=== PATIENT | male | born 1985 | race Caucasian/White ===

== ENCOUNTER 2019-03-02 06:34 | Emergency (ER) | payer OTHER ==
[2019-03-02 07:15] LABS: ABSOLUTE EOSINOPHILS # (AUTO) 0.1 10^3/uL (0.0-0.6); ABSOLUTE LYMPHOCYTES (AUTO) 2.9 10^3/uL (0.5-4.7); ABSOLUTE MONOCYTES (AUTO) 0.5 10^3/uL (0.1-1.4); ABSOLUTE NEUT (AUTO) 3.8 10^3/uL (1.7-8.2); BASOPHILS % (AUTO) 0.5 % (0-2); EOSINOPHILS % (AUTO) 1.8 % (0-6); HEMATOCRIT 39.8 % (37.9-51.0); HEMOGLOBIN 13.7 g/dL (13.5-17.0); LYMPHOCYTES % (AUTO) 39.3 % (13-45); MEAN CORPUSCULAR HEMOGLOBIN 29.1 pg (27.0-33.4); MEAN CORPUSCULAR HGB CONC 34.5 g/dL (32.0-36.0); MEAN CORPUSCULAR VOLUME 84 fl (80-97); MONOCYTES % (AUTO) 7.3 % (3-13); PLATELET COUNT 280 10^3/uL (150-450); RED BLOOD COUNT 4.72 10^6/uL (4.35-5.55); RED CELL DISTRIBUTION WIDTH 13.5 % (11.5-14.0); SEGMENTED NEUTROPHILS % (AUTO) 51.1 % (42-78); TOTAL CELLS COUNTED % (AUTO) 100 %; WHITE BLOOD COUNT 7.5 10^3/uL (4.0-10.5)
[2019-03-02] MEDS ORDERED: KETOROLAC TROMETHAMINE INJ/PF 30 MG/1 ML SDV IV ONE (07:22)
[2019-03-02] MEDS ORDERED: ONDANSETRON HCL INJ/PF 4 MG/2 ML SDV IV ONE (07:22)
[2019-03-02 07:33] LABS: ALBUMIN 4.6 g/dL (3.5-5.0); ALKALINE PHOSPHATASE 85 U/L (38-126); ANION GAP 12 (5-19); ASPARTATE AMINO TRANSFERASE 32 U/L (17-59); BILIRUBIN,DIRECT 0.1 mg/dL (0.0-0.4); BILIRUBIN,TOTAL 0.4 mg/dL (0.2-1.3); BLOOD UREA NITROGEN 23 mg/dL (7-20); CALCIUM 9.5 mg/dL (8.4-10.2); CARBON DIOXIDE 22 mmol/L (22-30); CHLORIDE 108 mmol/L (98-107); GLUCOSE 96 mg/dL (75-110); POTASSIUM 3.8 mmol/L (3.6-5.0); TOTAL PROTEIN 8.1 g/dL (6.3-8.2)
[2019-03-02 07:59] LABS: APPEARANCE,URINE SLIGHTLY-CLOUDY; BILIRUBIN,URINE NEGATIVE (NEGATIVE); COLOR,URINE YELLOW; GLUCOSE, URINE NEGATIVE (NEGATIVE); KETONES,URINE NEGATIVE (NEGATIVE); LEUKOCYTE ESTERASE,URINE NEGATIVE (NEGATIVE); NITRITE,URINE NEGATIVE (NEGATIVE); PROTEIN,URINE 30 mg/dL (NEGATIVE); URINE SPECIFIC GRAVITY 1.021; UROBILINOGEN,URINE NEGATIVE mg/dL (<2.0)
[2019-03-02] MEDS ORDERED: MORPHINE SULFATE 10 MG/ML INJ IV ONE ×2 (08:14→10:19)
--- NOTE | 2019-03-02 08:42 | ER Document Report ---
ED GI/ - General Chief Complaint: Abdominal Pain Stated Complaint: LEFT SIDE FLANK PAIN Time Seen by Provider: 03/02/19 07:59 Primary Care Provider: ELLYN,MOLLY [Primary Care Provider] - Follow up tomorrow (Follow up with URGENT UROLOGY REFERRAL) Notes: 33-year-old male with history of IBS presents with left lower quadrant pain that started last night with nausea. Patient states that pain is intermittent. Patient states that this pain radiates down to his left hip and to his left lower back. Patient states nothing makes it worse and nothing makes it better. Patient states he thought that it was his IBS and attempted to make himself vomit in an attempt to make himself feel better but that did not help. Patient states he took a couple tramadol this morning and it did not help with the pain. Patient states he does have a history of kidney stones however this feels different. Patient denies any urinary symptoms, fever, chills, constipation. Patient states he always has diarrhea and it is unchanged since last night. Patient denies any blood in emesis or in stool. TRAVEL OUTSIDE OF THE [place] IN LAST 30 DAYS: No - Related Data Allergies/Adverse Reactions: No Known Allergies Allergy (Verified 12/19/13 18:53) Home Medications: too many, pt can't state Past Medical History - Social History Smoking Status: Current Every Day Smoker Chew tobacco use (# tins/day): Yes Frequency of alcohol use: none for 1 yr Drug Abuse: None Family History: Reviewed & Not Pertinent Patient has suicidal ideation: No Patient has homicidal ideation: No Neurological Medical History: Reports: Hx Migraine Skin Medical History: Denies Hx Eczema, Denies Hx MRSA Psychiatric Medical History: Reports: Hx Depression Past Surgical History: Reports: Hx Inguinal Hernia - Immunizations Hx Diphtheria, Pertussis, Tetanus Vaccination: Yes Review of Systems - Review of Systems Notes: Constitutional: Negative for fever. HENT: Negative for sore throat. Eyes: Negative for visual changes. Cardiovascular: Negative for chest pain. Respiratory: Negative for shortness of breath. Gastrointestinal: Positive for abdominal pain, vomiting and diarrhea. Genitourinary: Negative for dysuria. Musculoskeletal: Negative for back pain. Skin: Negative for rash. Neurological: Negative for headaches, weakness or numbness. 10 point ROS negative except as marked above and in HPI. Physical Exam - Vital signs Vitals: Temp Pulse Resp BP Pulse Ox 98.0 F 64 20 118/70 97 03/02/19 06:46 03/02/19 06:46 03/02/19 06:46 03/02/19 06:46 03/02/19 06:46 - Notes Notes: GENERAL: Well-appearing, well-nourished and appears uncomfortable.. HEAD: Atraumatic, normocephalic. EYES: Extraocular movements intact, sclera anicteric, conjunctiva are normal. NECK: Normal range of motion, supple without lymphadenopathy or JVD. LUNGS: Breath sounds clear to auscultation bilaterally and equal. No wheezes rales or rhonchi. HEART: Regular rate and rhythm without murmurs, rubs or gallops. ABDOMEN: Soft, tender to left lower quadrant. No guarding, no rebound. No masses appreciated. No CVA tenderness. EXTREMITIES: Normal range of motion, no pitting or edema. No clubbing or cyanosis. NEUROLOGICAL: Cranial nerves II through XII grossly intact. Normal speech, normal gait. PSYCH: Normal mood, normal affect. SKIN: Warm, Dry, normal turgor, no rashes or lesions noted. Course - Re-evaluation Re-evalutation: 03/02/19 33-year-old male with past medical history of IBS presents with left lower quadrant pain that radiates to left lower back and left hip. Abdomen is soft with tenderness to left lower quadrant without CVA tenderness. UA shows hematuria without infection. Patient also has a history of kidney stones. Patient was given Toradol and Zofran prior to being seen by this provider. Patient states Toradol did not help with pain. However Zofran did help with his nausea. Work-up initiated including CT abdomen/pelvis with IV contrast. Morphine ordered. 03/02/19 09:07 Mild SHAYNE, creatinine 1.32 and BUN 23. NS 1 L IV bolus ordered. No leukocytosis. Liver enzymes WNL. Alk phos WNL. No anemia. Lipase WNL. 03/02/19 10:[address] Lo, attending, who recommended calling urology for stat follow up, getting pain under control, and making sure pt is PO tolerant. Discussed results with pt and pt's . Pt is [facility] pt and will call [facility] to see about urology referral/followup and if possible this provider will c [facility] urology for outpatient follow up. Pt states pain is starting to return. Another dose of morphine ordered with PO challenge. 03/02/19 10:55 This provider attempted to contact [facility] for referral to urology. Spoke to Belkis at office [facility] at [phone]. Belkis states that [facility] and then upon discharge contact his PCP. Pt is currently attempting to contact his PCP. Will also given pt provider note to help facilitate referral process. Pt is PO tolerant at this time and pain is controlled. 03/02/19 11:05 Pt states will contact his PCP for urgent referral to urology. Pt given provider note and CT results to take with him. Strict return precautions given/discussed. All questions/concerns addressed prior to discharge. Pt and pt's voice understanding and agree with plan of care. - Vital Signs Vital signs: Temp Pulse Resp BP Pulse Ox 98.0 F 64 20 118/72 96 03/02/19 06:46 03/02/19 06:46 03/02/19 06:46 03/02/19 09:00 03/02/19 11:00 - Laboratory Result Diagrams: 03/02/19 06:55 03/02/19 06:55 Laboratory results interpreted by me: 03/02/19 03/02/19 06:55 07:20 Chloride 108 H BUN 23 H Creatinine 1.32 H Urine Protein 30 H Urine Blood LARGE H Discharge - Discharge Clinical Impression: Left ureteral stone Condition: Stable Disposition: HOME, SELF-CARE Additional Instructions: Your CT shows a 9 mm stone in the left middle 3rd ureter with moderate left hydronephrosis and upper hydroureter. You will not be able to pass this stone and will need to see a urologist URGENTLY. Please take medication as prescribed. Return to ER IMMEDIATELY if you have any of the following symptoms: fever, inability to urinate, increased blood in urine. Please return to ER for any worsening symptoms that may be concerning to you. Prescriptions: Tamsulosin HCl [Flomax 0.4 mg Cap.sr] 0.4 mg PO DAILY #7 cap.sr.24h Oxycodone HCl/Acetaminophen [Percocet 5-325 mg Tablet] 1 - 2 tab PO Q4H PRN #15 tablet PRN Reason: Ondansetron [Zofran Odt 4 mg Tablet] 1 - 2 tab PO Q4H PRN #15 tab.rapdis PRN Reason: For Nausea/Vomiting [facility]errals: [facility] [[facility] Care [facility]] - Follow up tomorrow (Follow up with URGENT UROLOGY REFERRAL)
[2019-03-02] MEDS ORDERED: NORMAL SALINE 1000 ML 1,000 ML IV ONE (09:06)
--- NOTE | 2019-03-02 09:51 | RADIOLOGY REPORT (SQ) ---
EXAM DESCRIPTION: CT ABD/PELVIS WITH IV ONLY COMPLETED DATE/TIME: 03/02/2019 9:28 am REASON FOR STUDY: LLQ pain, nausea/vomiting, hx ibs and kidney stone COMPARISON: CT abdomen pelvis 09/05/2015, 12/19/2013 TECHNIQUE: CT scan of the abdomen and pelvis performed using helical scanning technique with dynamic intravenous contrast injection. No oral contrast. Images reviewed with lung, soft tissue, and bone windows. Reconstructed coronal and sagittal MPR images reviewed. Delayed images for evaluation of the urinary system also acquired. All images stored on PACS. All CT scanners at this facility use dose modulation, iterative reconstruction, and/or weight based d osing when appropriate to reduce radiation dose to as low as reasonably achievable (ALARA). [facility]: Dose Right [facility]: CareDose [facility]: Dose Right [facility]: Teradose 4D [facility]: [employer] CONTRAST TYPE AND DOSE: contrast/concentration: Isovue 350.00 mg/ml; Total Contrast Delivered: 100.0 ml; Total Saline Delivered: 72.0 ml RENAL FUNCTION: Creatinine 1.3 RADIATION DOSE: CT Rad equipment meets quality standard of care and radiation dose reduction techniq ues were employed. CTDIvol: 11.8 - 16.2 mGy. DLP: 2677 mGy-cm.. LIMITATIONS: None. FINDINGS: Moderate left hydronephrosis is present, due to a 9 mm stone in the left mid 3rd ureter at the level of the L3-4 disc. Stone measures 890 Hounsfield units. Mild left periureteral stranding in the retroperitoneal fat at the level of the stone No left renal cysts or masses. No other left ureteral calculi. LOWER CHEST: No significant findings. No nodules or infiltrates. LIVER: Normal size. No masses. No dilated ducts. SPLEEN: Normal size. No focal lesions. PANCREAS: No masses. No significant calcifications. No adjacent inflammation or peripancreatic fluid collections. Pancreatic duct not dilated. GALLBLADDER: No identified stones by CT criteria. No inflammatory changes to suggest cholecystitis. ADRENAL GLANDS: No significant masses or asymmetry. RIGHT KIDNEY AND URETER: No solid masses. 2 mm stone right lower pole kidney. No hydronephrosis o r hydroureter. LEFT KIDNEY AND URETER: As above. AORTA AND VESSELS: No aneurysm. No dissection. Renal arteries, SMA, celiac without stenosis. RETROPERITONEUM: No retroperitoneal adenopathy, hemorrhage or masses. BOWEL AND PERITONEAL CAVITY: No masses or inflammatory changes. No free fluid or peritoneal masses. APPENDIX: Normal. PELVIS: No mass. No free fluid. Normal bladder. ABDOMINAL WALL: No masses. No hernias. BONES: No significant or acute findings. OTHER: No other significant finding. IMPRESSION: 9 mm left mid third ureteral calculus causing moderate left hydronephrosis and upper hyd roureter. TECHNICAL DOCUMENTATION: JOB ID: [id number] Quality ID # [id number]: Final reports with documentation of one or more dose reduction techniques (e.g., Au tomated exposure control, adjustment of the mA and/or kV according to patient size, use of iterative reconstruction technique) 2010 [employer]- All Rights Reserved Reading location - IP/workstation name: [email or web address]
[2019-03-02] MEDS ORDERED: ONDANSETRON ODT 4 MG TAB (6 TAB/ER DISP) PO PRN (10:59)
[2019-03-02] MEDS ORDERED: HYDROCODONE/ACETAMINOPHEN 5-325 MG (6 TAB/ER DISP) PO PRN (10:59)
[2019-03-02 11:37] VITALS: BP 121/70
== END 2019-03-02 11:17 | disposition home or self-care (01) ==
LOC: ER 06:34
DX: N13.2 Hydronephrosis with renal and ureteral calculous obstruction (principal); R31.9 Hematuria, unspecified; R10.32 Left lower quadrant pain; R10.814 Left lower quadrant abdominal tenderness; R11.2 Nausea with vomiting, unspecified; R19.7 Diarrhea, unspecified; F17.200 Nicotine dependence, unspecified, uncomplicated
CPT/HCPCS: 96376; 99284; 96361; 96374; 96375; 36415; 83690; 85025; 80053; 81001; 74177; J1885; J2270; J2405; J7030

== ENCOUNTER 2019-08-27 21:39 | Emergency (ER) | payer OTHER ==
[2019-08-27] MEDS ORDERED: NORMAL SALINE 1000 ML 1,000 ML IV ONE ×2 (21:56→23:13)
[2019-08-27] MEDS ORDERED: ONDANSETRON HCL INJ/PF 4 MG/2 ML SDV IV ONE (21:57)
[2019-08-27] MEDS ORDERED: KETOROLAC TROMETHAMINE INJ/PF 30 MG/1 ML SDV IV ONE (21:57)
--- NOTE | 2019-08-27 22:00 | ER Document Report ---
ED Medical Screen (RME) - General Chief Complaint: Urinary Problem Stated Complaint: URINARY PROBLEM, URINATING BLOOD Time Seen by Provider: 08/27/19 21:56 Primary Care Provider: MOLLY RAGLAND [Primary Care Provider] - Follow up as needed Mode of Arrival: Ambulatory Information source: Patient Notes: 33-year-old male presented to ED for complaint of severe left going around to the groin pain. He states that he had a kidney stone on the left last week a stent was placed on . He states the blood and pain is getting much worse in his left flank going around to the groin. He states he tried to call the provider who placed the stent and was not able to get in touch with him. He states he called the [facility] the on-call nurse and they told him to come to the emergency room. Patient is alert oriented respirations regular nonlabored speaking in full sentences. I have ordered him IV fluids blood urine Toradol and Zofran IV and a CT abdomen pelvis with no contrast. I have greeted and performed a rapid initial assessment of this patient. A comprehensive ED assessment and evaluation of the patient, analysis of test results and completion of medical decision making process will be conducted by an additional ED providers. TRAVEL OUTSIDE OF THE [place] IN LAST 30 DAYS: No - Related Data Allergies/Adverse Reactions: No Known Allergies Allergy (Verified 12/19/13 18:53) Past Medical History Neurological Medical History: Reports: Hx Migraine Skin Medical History: Denies Hx Eczema, Denies Hx MRSA Psychiatric Medical History: Reports: Hx Depression Past Surgical History: Reports: Hx Inguinal Hernia - Immunizations Hx Diphtheria, Pertussis, Tetanus Vaccination: Yes Physical Exam - Vital signs Vitals: Temp Pulse Resp BP Pulse Ox 98.2 F 73 18 131/83 H 98 08/27/19 21:43 08/27/19 21:43 08/27/19 21:43 08/27/19 21:43 08/27/19 21:43 Course - Vital Signs Vital signs: Temp Pulse Resp BP Pulse Ox 98.2 F 73 18 131/83 H 98 08/27/19 21:43 08/27/19 21:43 08/27/19 21:43 08/27/19 21:43 08/27/19 21:43 Doctor's Discharge - Discharge Referrals: [facility] [Primary Care Provider] - Follow up as needed
[2019-08-27 22:33] LABS: ABSOLUTE EOSINOPHILS # (AUTO) 0.2 10^3/uL (0.0-0.6); ABSOLUTE LYMPHOCYTES (AUTO) 1.8 10^3/uL (0.5-4.7); ABSOLUTE MONOCYTES (AUTO) 0.4 10^3/uL (0.1-1.4); ABSOLUTE NEUT (AUTO) 4.9 10^3/uL (1.7-8.2); BASOPHILS % (AUTO) 0.6 % (0-2); EOSINOPHILS % (AUTO) 2.2 % (0-6); HEMATOCRIT 40.8 % (37.9-51.0); HEMOGLOBIN 14.2 g/dL (13.5-17.0); LYMPHOCYTES % (AUTO) 24.7 % (13-45); MEAN CORPUSCULAR HEMOGLOBIN 29.5 pg (27.0-33.4); MEAN CORPUSCULAR HGB CONC 34.8 g/dL (32.0-36.0); MEAN CORPUSCULAR VOLUME 85 fl (80-97); MONOCYTES % (AUTO) 5.9 % (3-13); PLATELET COUNT 280 10^3/uL (150-450); RED CELL DISTRIBUTION WIDTH 13.9 % (11.5-14.0); SEGMENTED NEUTROPHILS % (AUTO) 66.6 % (42-78); TOTAL CELLS COUNTED % (AUTO) 100 %; WHITE BLOOD COUNT 7.3 10^3/uL (4.0-10.5)
[2019-08-27 22:36] LABS: APPEARANCE,URINE CLOUDY; BILIRUBIN,URINE NEGATIVE (NEGATIVE); COLOR,URINE AMBER; GLUCOSE, URINE NEGATIVE (NEGATIVE); KETONES,URINE NEGATIVE (NEGATIVE); LEUKOCYTE ESTERASE,URINE SMALL (NEGATIVE); NITRITE,URINE NEGATIVE (NEGATIVE); PROTEIN,URINE >=500 mg/dL (NEGATIVE); URINE SPECIFIC GRAVITY 1.023; UROBILINOGEN,URINE NEGATIVE mg/dL (<2.0)
--- NOTE | 2019-08-27 22:47 | ER Document Report ---
ED General - General Chief Complaint: Flank Pain Stated Complaint: URINARY PROBLEM, URINATING BLOOD Time Seen by Provider: 08/27/19 21:56 Primary Care Provider: [facility] [Primary Care Provider] - Follow up as needed Mode of Arrival: Ambulatory TRAVEL OUTSIDE OF THE [place] IN LAST 30 DAYS: No - HPI Onset: Other - over the last several days Onset/Duration: Gradual Quality of pain: Pressure Severity: Moderate Pain Level: 4 Associated symptoms: Nausea Exacerbated by: Other - palpation of left flank Relieved by: Denies Similar symptoms previously: No Recently seen / treated by doctor: Yes - Patient just had a double J stent place d August 23 Notes: 33 year old male with a history of Kidney Stones who just had a left sided Double J Ureteral Stent placed on August 23 here in the ER for worsening left flank pain and continued hematuria. The patient denies fevers, chills, sweats, but he has some mild nausea. The patient says he tried to call his Urologist at [place] but he did not hear back from the mail distribution clerk doctor so the mail distribution clerk nurse directed him to an ER. The patient says he is scheduled for stent removal next week. - Related Data Allergies/Adverse Reactions: No Known Allergies Allergy (Verified 12/19/13 18:53) Past Medical History - General Information source: Patient - Social History Smoking Status: Never Smoker Chew tobacco use (# tins/day): Yes Frequency of alcohol use: None Drug Abuse: None Family History: Reviewed & Not Pertinent Patient has homicidal ideation: No Neurological Medical History: Reports: Hx Migraine Skin Medical History: Denies Hx Eczema, Denies Hx MRSA Psychiatric Medical History: Reports: Hx Depression Past Surgical History: Reports: Hx Inguinal Hernia - Immunizations Hx Diphtheria, Pertussis, Tetanus Vaccination: Yes Review of Systems - Review of Systems Constitutional: No symptoms reported EENT: No symptoms reported Cardiovascular: No symptoms reported Respiratory: No symptoms reported Gastrointestinal: Abdominal pain - left upper quadrant Genitourinary: Flank pain - left sided, Hematuria Male Genitourinary: No symptoms reported Musculoskeletal: No symptoms reported Skin: No symptoms reported Hematologic/Lymphatic: No symptoms reported Neurological/Psychological: No symptoms reported -: Yes All other systems reviewed and negative Physical Exam - Vital signs Vitals: Temp Pulse Resp BP Pulse Ox 98.2 F 73 18 131/83 H 98 08/27/19 21:43 08/27/19 21:43 08/27/19 21:43 08/27/19 21:43 08/27/19 21:43 - Notes Notes: GENERAL: Well-appearing, well-nourished and in no acute distress. HEAD: Atraumatic, normocephalic. EYES: Pupils equal round and reactive to light, extraocular movements intact, sclera anicteric, conjunctiva are normal. ENT: External ears normal, nares patent, oropharynx clear without exudates. Moist mucous membranes. NECK: Normal range of motion, supple without lymphadenopathy or JVD. LUNGS: Breath sounds clear to auscultation bilaterally and equal. No wheezes rales or rhonchi. HEART: Regular rate and rhythm without murmurs, rubs or gallops. ABDOMEN: Soft, mild left flank tenderness, normoactive bowel sounds. No guardi ng, no rebound. No masses appreciated. : Left flank tenderness EXTREMITIES: Normal range of motion, no pitting or edema. No clubbing or cyanosis. NEUROLOGICAL: Cranial nerves II through XII grossly intact. Normal speech, normal gait. PSYCH: Normal mood, normal affect. SKIN: Warm, Dry, normal turgor, no rashes or lesions noted. Course - Re-evaluation Re-evalutation: 08/27/19 23:10 The patient is here for worsening left flank pain and persistent hematuria since having a double J ureteral stent placed last at [facility]. CT performed which shows a double J stent correctly placed. Patient's Urologist at [facility] was consulted and he called me back and told me its normal to have pain from a stent and to have continued hematuria. Patient's Urologist told me to treat patient with Ditropan and to have the patient follow up as scheduled in clinic this week. Patient prescribed Ditropan from the ER. Patient's Urine is consistent with someone who has had a stent placed but will culture to ensure no bacterial growth to be safe. - Vital Signs Vital signs: Temp Pulse Resp BP Pulse Ox 98.2 F 73 18 131/83 H 98 08/27/19 21:59 08/27/19 21:43 08/27/19 21:43 08/27/19 21:43 08/27/19 21:43 - Laboratory Result Diagrams: 08/27/19 22:11 08/27/19 22:11 Laboratory results interpreted by me: 08/27/19 08/27/19 22:11 22:22 Chloride 108 H BUN 24 H Urine Protein >=500 H Urine Blood LARGE H Ur Leukocyte Esterase SMALL H - Diagnostic Test Radiology reviewed: Image reviewed, Reports reviewed Discharge - Discharge Clinical Impression: Flank pain Condition: Stable Disposition: HOME, SELF-CARE Instructions: Flank Pain ([facility]), Kidney Stone ([facility]) Additional Instructions: Use Tylenol and Motrin for pain along with your previously prescribed Oxycodone. Also use the prescribed Ditropan as needed 3 times a day. Follow up with your Urologist next week for stent removal. Tell the Doctor at your Urology appointment he/she can view the CT scan which was obtained in this ER since it was sent to [facility] electronically. Also tell the Urologist you follow up with you had a Urine Culture obtained on 08/27/19 which should result in 48 hours. Prescriptions: Oxybutynin Chloride [Ditropan 5 Mg Tablet] 5 mg PO TID PRN 4 Days #12 tablet PRN Reason: Referrals: [facility] [Primary Care Provider] - Follow up as needed
[2019-08-27 22:52] LABS: ALBUMIN 4.5 g/dL (3.5-5.0); ALKALINE PHOSPHATASE 89 U/L (38-126); ANION GAP 10 (5-19); ASPARTATE AMINO TRANSFERASE 29 U/L (17-59); BILIRUBIN,TOTAL 0.3 mg/dL (0.2-1.3); BLOOD UREA NITROGEN 24 mg/dL (7-20); CALCIUM 9.2 mg/dL (8.4-10.2); CARBON DIOXIDE 23 mmol/L (22-30); CHLORIDE 108 mmol/L (98-107); GLUCOSE 105 mg/dL (75-110); TOTAL PROTEIN 7.3 g/dL (6.3-8.2)
--- NOTE | 2019-08-27 22:55 | RADIOLOGY REPORT (SQ) ---
EXAM DESCRIPTION: CT scan of the abdomen and pelvis without contrast. CLINICAL HISTORY: 33 years Male; Left flank pain recent stent stent placed three days ago. TECHNIQUE: CT of the abdomen and pelvis without intravenous contrast. All CT scans at this facility use dose modulation, iterative reconstruction, and/or weight based dosing when appropriate to reduce radiation dose to as low as reasonably achievable. This exam was performed according to our department optimization program which includes automated exposure control, adjustment of the mA and/or kv according to patient size and/or use of iterative reconstruction technique. COMPARISON: CT scan of the abdomen and pelvis with contrast March 02, 2019 FINDINGS: Lower chest: Minimal dependent densities present in the lung bases consistent with atelectasis. No pneumothorax or pleural effusion. Heart size is normal. Abdomen: Liver and biliary tree: The unenhanced liver is unremarkable. Gallbladder is unremarkable. Pancreas: Normal Spleen:Within normal limits Kidneys: Kidneys are normal in size shape and position. There is a double-J left-sided ureteral stent with pigtail formed in the renal pelvis and in the bladder. There is edema noted surrounding the left ureter. No stones are seen adjacent to the catheter. There is mild left-sided hydronephrosis. No left kidney stones are seen. No perinephric edema. In the lower pole of the right kidney is a 2 mm nonobstructing stone. Adrenal glands:Within normal limits Vascular structures:Within normal limits Retroperitoneum: No mass or lymphadenopathy Abdominal wall: normal GI: Moderate stool is present in the right colon and in the rectosigmoid region. The bowel is not dilated. No inflammation is seen in the bowel. No obstruction. Appendix: The appendix appears normal. General: No free air. No free fluid Pelvis: Lymph nodes: No mass or lymphadenopathy Bladder: The bladder is empty. Pelvis: No pelvic mass or adenopathy. Bones: No acute bone findings. IMPRESSION: Left-sided double-J ureteral stent is in place and there is a small amount of left-sided hydronephrosis as well as edema surrounding the left ureter. No perinephric fluid. Small nonobstructing right kidney stone.
[2019-08-27] MEDS ORDERED: MORPHINE SULFATE 10 MG/ML INJ IV ONE (23:09)
[2019-08-27] MEDS ORDERED: OXYBUTYNIN CHLORIDE 5 MG TABLET PO ONE (23:14)
[2019-08-28 00:08] VITALS: BP 123/85
== END 2019-08-28 00:08 | disposition home or self-care (01) ==
LOC: ER 21:39
DX: R10.9 Unspecified abdominal pain (principal); R39.198 Other difficulties with micturition; R31.9 Hematuria, unspecified; R11.0 Nausea; R10.12 Left upper quadrant pain; F17.290 Nicotine dependence, other tobacco product, uncomplicated; Z98.890 Other specified postprocedural states
CPT/HCPCS: 99284; 96361; 96374; 96375; 36415; 87086; 85025; 80053; 81001; 74176; J1885; J2270; J2405; J7030